=== PATIENT | female | born 1955 | race Caucasian/White ===

== ENCOUNTER 2016-08-12 14:11 | Emergency (ER) | payer SELFPAY ==
--- NOTE | 2016-08-12 14:49 | ED.PDOC ---
History of Present Illness - General Chief Complaint: ENT Problem Stated Complaint: bug flew in L ear Time Seen by Provider: 08/12/16 14:12 Source: patient, RN notes reviewed, Vital Signs reviewed Exam Limitations: no limitations - History of Present Illness Initial Comments: Patient was gardening and felt and heard a bug fly in her L ear. She flushed it with peroxide but is concerned the bug is still in there. Timing/Duration: abrupt, this afternoon EENT Location: ear (L) Prearrival Treatment: other - Flushed ear Improving Factors: other - Flushing ear Worsening Factors: nothing Associated Symptoms: denies symptoms Review of Systems - Review of Systems Constitutional: States: no symptoms reported EENTM: States: see HPI Respiratory: States: no symptoms reported Cardiology: States: no symptoms reported Musculoskeletal: States: no symptoms reported Skin: States: no symptoms reported Neurological: States: no symptoms reported Physical Exam - Physical Exam General Appearance: Alert, Comfortable, No apparent distress, Well Developed, Well Groomed, Well Hydrated, Well Nourished Eye Exam: bilateral normal Ear Exam: bilateral ear: auricle normal, canal normal - No foreign body identified, TM normal Neck: full range of motion, supple, normal inspection Cardiovascular/Respiratory: no respiratory distress Neurologic: alert, normal mood/affect, oriented x 3 Skin Exam: normal color, warm/dry Departure - Departure Clinical Impression: Foreign body in ear Qualifiers: Encounter type: initial encounter Laterality: left Qualifier Code: (T16.2XXA) Foreign body in left ear, initial encounter Time of Disposition: 14:49 Disposition: Discharge to Home or Self Care Condition: Good Instructions: DI for Removal of Foreign Body From Ear Diet: resume usual diet Activity: increase activity as tolerated
[2016-08-12 15:30] VITALS: BP 127/82; TEMP 98.3; O2SAT 96
== END 2016-08-12 14:48 | disposition home or self-care (01) ==
LOC: ER 14:11
DX: T16.2XXA Foreign body in left ear, initial encounter (principal); X58.XXXA Exposure to other specified factors, initial encounter

== ENCOUNTER → 2019-02-20 | Outpatient (CLI) | payer MEDICARE, OTHER | LOC: LAB.O 16:34 | PROVIDERS: ATTEND Nurse Practitioner Family | DX: M10.00 Idiopathic gout, unspecified site (principal) ==